=== PATIENT | female | born 1975 | race Hispanic/Latino ===

== ENCOUNTER 2021-04-30 10:24 | Inpatient (IN) | payer OTHER ==
[~2021-04-30] VITALS: Ht 157.5 cm; Wt 86.5 kg
[2021-04-30] MEDS ORDERED: CEFEPIME HCL 2 GM VIAL IVP STA (10:53)
[2021-04-30] MEDS ORDERED: VANCOMYCIN 1G VIAL IVPB ONE (11:00)
[2021-04-30] MEDS: LIDOCAINE HCL/EPINEPHRINE 30 ML VIAL IJ SCH ×2 (11:00→13:55)
[2021-04-30 11:18] LABS: BASOPHILS % (AUTO) 0.3 % (0.0-5.0); EOSINOPHILS % (AUTO) 0.6 % (0.0-8.0); HEMATOCRIT 40.6 % (36-48); LYMPHOCYTES % (AUTO) 22.6 % (21.0-51.0); MEAN CORPUSCULAR HEMOGLOBIN 28.9 pg (27.0-33.0); MEAN CORPUSCULAR HGB CONC 34.7 g/dL (32.0-36.0); MEAN CORPUSCULAR VOLUME 83.2 fL (79-99); MONOCYTES % (AUTO) 9.6 % (3.0-13.0); NEUTROPHILS % (AUTO) 66.6 % (40.0-77.0); PLATELET COUNT (AUTO) 175 K/uL (130-400); RED BLOOD CELL COUNT(AUTO) 4.88 MIL/uL (4.00-5.50); RED CELL DISTRIBUTION WIDTH 13.7 % (11.0-15.5); WHITE BLOOD COUNT (AUTO) 9.1 K/uL (4.8-10.8)
[2021-04-30] MEDS ORDERED: VANCOMYCIN 1G/250ML KIT 250 ML IV ONE (11:29)
[2021-04-30 11:36] LABS: ALBUMIN 3.3 g/dL (3.5-5.0); BILIRUBIN,TOTAL 1.3 mg/dL (0.2-1.0); CREATININE 0.8 mg/dL (0.5-1.5); POTASSIUM 3.8 mmol/L (3.5-5.1); TOTAL PROTEIN, SERUM 7.8 g/dL (6.0-8.3)
[2021-04-30] MEDS ORDERED: DiphenhydrAMINE HCL 50 MG/ML VIAL IV ONE (13:30)
[2021-04-30] MEDS ORDERED: ACETAMINOPHEN 500 MG TABLET PO ONE (13:30)
[2021-04-30] MEDS ORDERED: VANCOMYCIN PROTOCOL PER PHARMACY IV SCH (15:30)
[2021-04-30] MEDS ORDERED: ONDANSETRON 4MG INJ IVP PRN (15:30)
[2021-04-30] MEDS ORDERED: ZOSYN 3.375GM+NS 50ML 3.38 GM in 0.9%NACL 50ML 50 ML IV SCH (15:30)
[2021-04-30] MEDS ORDERED: COMPOUND IV REFRIGERATED 1 EACH IVSOLN MISC PRN (16:00)
[2021-04-30] MEDS: ZOSYN 3.375GM +NS 50ML IV SCH (16:15)
[2021-04-30] MEDS ORDERED: PRAZ1CAP5 PO (16:27)
[2021-04-30] MEDS ORDERED: LOSA50TA64 PO (16:27)
[2021-04-30] MEDS ORDERED: MONT10TA21 PO (16:27)
[2021-04-30] MEDS ORDERED: METF-446 PO (16:27)
[2021-04-30] MEDS ORDERED: INSU100V37 SQ (16:27)
[2021-04-30] MEDS ORDERED: DULA0.75 SQ (16:27)
[2021-04-30] MEDS ORDERED: ACETAMINOPHEN 325 MG TAB PO PRN (16:30)
[2021-04-30] MEDS ORDERED: 0.9%NACL 10ML VIAL IVP PRN (16:30)
[2021-04-30] MEDS: VANCOMYCIN 1.25GM/NS 250ML IVPB SCH ×2 (22:39)
[2021-05-01] MEDS: ZOSYN 3.375GM +NS 50ML IV SCH ×3 (00:18→21:28)
[2021-05-01 01:05] VITALS: BP 112/65
[2021-05-01 04:00] VITALS: BP 112/71
[2021-05-01 04:44] LABS: BASOPHILS % (AUTO) 0.4 % (0.0-5.0); EOSINOPHILS % (AUTO) 2.2 % (0.0-8.0); HEMATOCRIT 41.3 % (36-48); LYMPHOCYTES % (AUTO) 22.9 % (21.0-51.0); MEAN CORPUSCULAR HGB CONC 34.1 g/dL (32.0-36.0); MEAN CORPUSCULAR VOLUME 84.8 fL (79-99); NEUTROPHILS % (AUTO) 64.2 % (40.0-77.0); PLATELET COUNT (AUTO) 175 K/uL (130-400); RED BLOOD CELL COUNT(AUTO) 4.87 MIL/uL (4.00-5.50); RED CELL DISTRIBUTION WIDTH 13.8 % (11.0-15.5); WHITE BLOOD COUNT (AUTO) 6.8 K/uL (4.8-10.8)
[2021-05-01 05:03] LABS: HEMOGLOBIN A1C 9.6 % (4.0-6.0)
[2021-05-01 05:09] LABS: ALBUMIN 3.2 g/dL (3.5-5.0); BILIRUBIN,TOTAL 0.9 mg/dL (0.2-1.0); CREATININE 0.7 mg/dL (0.5-1.5); MAGNESIUM 1.9 mg/dL (1.80-2.40); POTASSIUM 3.6 mmol/L (3.5-5.1); TOTAL PROTEIN, SERUM 7.6 g/dL (6.0-8.3)
[2021-05-01 08:00] VITALS: BP 116/70
[2021-05-01 11:50] VITALS: BP 115/77
[2021-05-01] MEDS: VANCOMYCIN 1.25GM/NS 250ML IVPB SCH ×4 (12:28→21:42)
[2021-05-01] MEDS: INSULIN HUMULIN R 100 UNIT/ML 3ML SQ SCH ×2 (12:30→18:20)
[2021-05-01] MEDS: ENOXAPARIN SODIUM 30 MG/0.3 ML SQ SCH (12:33)
[2021-05-01 16:00] VITALS: BP 111/66
[2021-05-01 20:00] VITALS: BP 96/55
[2021-05-02] VITALS: BP 106/58
[2021-05-02] MEDS: INSULIN HUMULIN R 100 UNIT/ML 3ML SQ SCH ×5 (00:05→20:58)
[2021-05-02 04:31] VITALS: BP 110/59
[2021-05-02] MEDS: ZOSYN 3.375GM +NS 50ML IV SCH ×3 (05:24→20:57)
[2021-05-02 08:15] VITALS: BP 113/63
[2021-05-02] MEDS: ENOXAPARIN SODIUM 30 MG/0.3 ML SQ SCH (09:43)
[2021-05-02] MEDS: VANCOMYCIN 1.25GM/NS 250ML IVPB SCH ×2 (09:56)
[2021-05-02 10:19] LABS: HEMATOCRIT 39.2 % (36-48); MEAN CORPUSCULAR HEMOGLOBIN 28.9 pg (27.0-33.0); MEAN CORPUSCULAR HGB CONC 33.4 g/dL (32.0-36.0); MEAN CORPUSCULAR VOLUME 86.3 fL (79-99); PLATELET COUNT (AUTO) 175 K/uL (130-400); RED BLOOD CELL COUNT(AUTO) 4.54 MIL/uL (4.00-5.50); RED CELL DISTRIBUTION WIDTH 13.7 % (11.0-15.5); WHITE BLOOD COUNT (AUTO) 5.3 K/uL (4.8-10.8)
[2021-05-02 10:29] LABS: CREATININE 0.7 mg/dL (0.5-1.5)
[2021-05-02 10:48] LABS: EOSINOPHILS % (MANUAL) 7 % (1-6); LYMPHOCYTES % (MANUAL) 30 % (22-44); MAN.DIFF COMMENT-IMPRESSION MANUAL DIFFERENTIAL; MONOCYTES % (MANUAL) 11 % (2-9); PLATELET MORPHOLOGY COMMENT ADEQUATE; REACTIVE LYMPHOCYTES 3 % (0-0); SEGMENTED NEUTROPHILS % 49 % (40-70)
[2021-05-02 12:17] VITALS: BP 103/68
[2021-05-02 16:31] VITALS: BP 112/72
[2021-05-02] MEDS ORDERED: KETOROLAC 30MG VIAL (30MG/ML) ONE (16:53)
[2021-05-02] MEDS ORDERED: KETOROLAC 30MG VIAL (30MG/ML) IM SCH (17:00)
[2021-05-02] MEDS ORDERED: VANCOMYCIN KIT 1 GM/250 ML IV.KIT IV SCH (17:00)
[2021-05-02] MEDS ORDERED: 0.9% NACL 250ML 250 ML IV SCH (17:00)
[2021-05-02 20:18] VITALS: BP 105/64
[2021-05-03] VITALS: BP 125/66
[2021-05-03 03:39] VITALS: BP 120/72
[2021-05-03] MEDS: ZOSYN 3.375GM +NS 50ML IV SCH ×2 (04:06→13:56)
[2021-05-03] MEDS: INSULIN HUMULIN R 100 UNIT/ML 3ML SQ SCH ×2 (05:53→12:09)
[2021-05-03 07:55] VITALS: BP 107/65
[2021-05-03 11:27] VITALS: BP 107/68
[2021-05-03] MEDS: ENOXAPARIN SODIUM 30 MG/0.3 ML SQ SCH (12:08)
[2021-05-03] MEDS ORDERED: VANCOMYCIN KIT 1 GM/250 ML IV.KIT IV SCH (14:00)
[2021-05-03] MEDS ORDERED: 0.9% NACL 250ML 250 ML IV SCH (14:00)
[2021-05-03 16:58] VITALS: BP 117/72
== END 2021-05-03 18:00 | disposition home or self-care (01) | DRG 580 ==
LOC: EDH 10:24 → EDHIP 13:25 → OBSVTOIN 13:25 → UNDOADMOB 13:25 → INTOOBSV 13:25 → EDHIP 13:38 → OBSVTOIN 13:38 → 3AH 05-01 00:39
PROVIDERS: ADMIT Internal Medicine Infectious Disease; ATTEND Internal Medicine Infectious Disease
PROC: 0W9F0ZZ Drainage of Abdominal Wall, Open Approach (ICD-10-PCS; principal; 2021-04-30)
DX: L02.211 Cutaneous abscess of abdominal wall (principal); E87.1 Hypo-osmolality and hyponatremia; F17.200 Nicotine dependence, unspecified, uncomplicated; E66.9 Obesity, unspecified; I10 Essential (primary) hypertension; E11.9 Type 2 diabetes mellitus without complications; Z68.34 Body mass index [BMI] 34.0-34.9, adult; Z88.2 Allergy status to sulfonamides; Z88.8 Allergy status to other drugs, medicaments and biological substances; Z90.13 Acquired absence of bilateral breasts and nipples; Z90.710 Acquired absence of both cervix and uterus; Z85.3 Personal history of malignant neoplasm of breast; Z85.42 Personal history of malignant neoplasm of other parts of uterus
CPT/HCPCS: 36415; 76705; 80048; 80053; 80202; 82948; 83036; 83605; 83735; 85025; 87040; 87070; 87076; 87077; 87186; G0378; J0692; J1200; J1650; J1815; J1885; J2543; J3370; J7050